=== PATIENT | male | born 1985 | race Caucasian/White ===

== ENCOUNTER 2017-05-24 09:50 | Emergency (ER) | payer SELFPAY, BC | END 2017-05-24 11:09 | disposition home or self-care (01) | LOC: ER 09:50 | DX: K04.7 Periapical abscess without sinus (principal); K02.9 Dental caries, unspecified; F12.10 Cannabis abuse, uncomplicated; M19.90 Unspecified osteoarthritis, unspecified site | CPT/HCPCS: 99283 ==